=== PATIENT | male | born 1995 | race Caucasian/White ===

== ENCOUNTER 2020-01-05 08:57 | Emergency (ER) | payer SELFPAY ==
[2020-01-05 09:00] VITALS: BP 127/70; PULSE 79; RESP 18; TEMP 36.9; O2SAT 98
--- NOTE | 2020-01-05 09:33 | ED.GENADUL_ITS ---
Discharge Plan Disposition Patient Disposition: HOME Condition: Stable Discharge Details Chief Complaint: RespSymp Clinical Impression: Shortness of breath, Pharyngitis Primary Care Provider: None,None ED Provider: Earnest Silva Discharge Instructions Instructions: Pharyngitis (ED), Dyspnea (ED) Additional Instructions: Rapid strep test is negative, culture pending. Cbrw-cew-duesckl medications as directed for symptomatic control. At this time your symptoms are concerning for coronavirus. Due to the increased likelihood of your symptoms being from coronavirus the CDC does recommend testing. It takes at least 72 hours for the test results to return. You will be contacted by [facility] staff when your results return. If you do not hear from them in 72 hours, please contact [facility]. Out of an abundance of precaution it is highly recommended that you self quarantine yourself for a total of 14 days or until symptom-free for greater than 48 hours. It would be prudent to wear a mask at all times, always wash her hands frequently, and follow-up closely with your primary care provider. It is recommended that you call your primary care provider prior to reassessment. If you are going to a health facility, please call/contact them before you arrive. At this time based on your current symptoms the CDC does not recommend admission, and there is no current clinical indication for your admission here at the hospital. However it is vitally im portant to monitor your symptoms closely, and if you notice any worsening of your symptoms, or any new symptoms such as worsening shortness of breath, difficulty breathing, persistent fever, worsening chills, chest pain, numbness, weakness, or fainting please call and then return immediately to the emergency department for reevaluation. Please call your primary care provider as soon as possible to make them aware of your current situation and for continued monitoring. As always, it was a pleasure participating in your medical care today. Stand Alone Forms: POSITIVE COVID-19/TO BE TESTED Medical Decision Making 24-year-old gentleman presents sore throat, shortness of breath, dry cough for the past 3 days. Needs to be cleared to return to work. He appears well, nontoxic. He is currently afebrile, pulse in the 70s, O2 sat 98% on room air. Given his complaint of sore throat, will obtain rapid strep The patient demonstartes some red flags as noted by the CDC for coronavirus including cough, and/or shortness of breath. The patient looks notably clinically well, and does not demonstrate evidence of respiratory distress, significant or severe illness, or sepsis. Per CDC recommendations, coronavirus testing has been set up to be performed in the tent. Additionally, patient currently does not demonstrate symptoms indicative of admission or further observation here. At this time based on the patient's current clinical picture symptoms are likely secondary to a non-coronavirus viral illness. Out of an abundance of precaution taking into account the current level of national concern, the patient's entire clinical picture, and CDC recommendations, the patient can be discharged home. Per CDC recommendations we will recommend a 14- day quarantine of the patient I have discussed good handwashing techniques, the importance of a mask, and we have also included CDC recommendations for home monitoring and isolation. I have extensively reviewed the treatment plan and discharge instructions with the patient. I have addressed all patient concerns at this time. The patient was made aware of what symptoms to monitor for that would warrant a return to the emergency department. I also discussed the importance of calling the patients's PCP, as well as the ED for any concern on prior to return. Discussed the plan with the patient, they demonstrate verbal understanding and agreement with our assessment and plan at this time. Patient was placed on the care management list to help obtain a primary care provider Lab Data Lab results narrative: Rapid strep negative, culture pending HPI General Mode of arrival: ambulatory . Date/Time Provider Initiated Documentation: 01/05/20 09:08 . Limitations to Documentation: no limitations . Information obtained by: patient . 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 He reports 3-day history of sore throat, subjective shortness of breath, dry cough. Denies any fever. He denies any recent travel or any known exposure to a Covid positive patient. He has not taken any lfdb-edi-weiujom medications for his symptoms. He denies headache, ear pain, productive cough, abdominal pain, nausea, vomiting, rash, bowel or bladder symptoms. Related Data Allergies Allergy/AdvReac Type Severity Reaction Status Date / Time oats Allergy Severe Anaphylaxsi Unverified 01/05/20 09:04 s amoxicillin Allergy Mild Hives Unverified 01/05/20 09:04 chocolate flavor Allergy Mild Skin Rash Unverified 01/05/20 09:04 stawberrys Allergy Mild Skin Rash Uncoded 01/05/20 09:04 General Stated Complaint: RespSymp GARDENAI: 3 Review of Systems Constitutional Constitutional: Denies fever(s) and Denies headache(s) Eyes Eyes: Denies eye discharge ENT Ears, Nose, Mouth, and Throat: Denies headache(s), Reports nasal discharge and Reports sore throat Cardiovascular Cardiovascular: Denies chest pain and Reports dyspnea Respiratory Respiratory: Reports cough and Reports dyspnea Gastrointestinal Gastrointestinal: Denies abdominal pain, Denies diarrhea, Denies nausea and Denies vomiting Musculoskeletal Musculoskeletal: Denies myalgias Integumentary/Breasts Skin/Breast: Denies rash Neurologic Neurologic: Denies headache(s) [facility] Social History Smoking/Tobacco Use Status: Current every day Tobacco Type: smokeless tobacco Alcohol Intake: former Drug use: Never Substance use type: does not use Do you feel safe at home: Yes Do you feel safe in your relationship?: Yes Exam Const General: cooperative, healthy appearing, comfortable and no acute distress Orientation: alert, awake and oriented x3 HENMT Head: normal to inspection, normocephalic and atraumatic Ears: external ears normal, TM's normal bilaterally and EAC's normal Mouth: moist mucous membranes Throat: posterior oropharynx normal Eyes Conjunctivae: conjunctivae normal Neck Neck: normal visual inspection, full ROM, no lymphadenopathy, no meningeal signs, trachea midline and supple Resp Effort & Inspection: normal respiratory effort and able to speak in complete sentences Auscultation: clear to auscultation bilaterally Cardio Rate: regular rate Rhythm: regular rhythm GI Palpation: soft and nontender Back/Spine/Pelvis Back: No back tenderness Skin General skin exam: no rashes or lesions noted Neuro General: patient alert, patient awake, moves all extremities and no focal motor deficits Sensory Exam: no sensory deficits noted Psych Appearance: grossly normal Mental Status: mental status grossly normal Course Vital Signs Vital signs: Vital Signs Temperature 36.9 C 01/05/20 09:00 Pulse 79 01/05/20 09:00 Respiratory Rate 18 01/05/20 09:00 Blood Pressure 127/70 01/05/20 09:00 Pulse Oximetry 98 01/05/20 09:00 Temperature 36.9 C 01/05/20 09:00 Temperature Source Temporal Artery Scan 01/05/20 09:00 Pulse 79 01/05/20 09:00 Respiratory Rate 18 01/05/20 09:00 Respiratory Effort Non-Labored 01/05/20 09:05 Blood Pressure 127/70 01/05/20 09:00 Blood Pressure Position Sitting 01/05/20 09:00 Pulse Oximetry 98 01/05/20 09:00 Oxygen Delivery Method Room Air 01/05/20 09:00 Oxygen Flow Rate 0 01/05/20 09:00 Pain Level 5 01/05/20 09:00 Lab/Test Results Lab/Test Results: POC Strep Test-STEPHANIE(Rapid) Start: 01/05/20 09:31 Freq: .Rapid Strep Test Status: Active Protocol: Document 01/05/20 09:32 AW (Rec: 01/05/20 09:32 AW [email or web address]) Strep test-STEPHANIE(Rapid)-POC POC-Strep test-STEPHANIE (Rapid) Negative POC-Strep test-STEPHANIE (Rapid) Negative
[2020-01-05 09:46] VITALS: PULSE 73; TEMP 36.8; O2SAT 96
--- NOTE | 2020-01-05 09:54 | NUR.NOTE ---
REFERRED TO CARE MANAGEMENT TO RECEIVE A PCP MIQUEL. Nursing Note:
--- NOTE | 2020-01-05 13:47 | PDOC.ERCMPRO ---
- If Service Date Differs Date of service: 01/05/20 Time of Service: 13:47 Care Management Progress Note At the request of ED provider, LISSETT coordinates a referral to [facility] on behalf of Hari, who needs to establish care with a primary care physician.
== END 2020-01-05 09:52 | disposition home or self-care (01) ==
LOC: ER 10:21
PROVIDERS: Emergency Provider Physician Assistant
DX: R06.02 Shortness of breath (principal); J02.9 Acute pharyngitis, unspecified
CPT/HCPCS: 87880; 99283; 87081; 99282

== ENCOUNTER 2020-01-10 08:16 | Outpatient (CLI) | payer SELFPAY ==
[2020-01-11 14:15] LABS: COVID-19 RT-PCR Result Negative (Negative)
--- NOTE | 2020-01-12 19:16 | NUR.NOTE ---
patient is aware of negative Covid -19 results. Nursing Note:
== END 2020-01-10 08:36 ==
PROVIDERS: Visit Provider Physician Assistant
DX: Z11.59 Encounter for screening for other viral diseases (principal)
CPT/HCPCS: U0003

== ENCOUNTER 2020-03-22 15:26 | Emergency (ER) | payer OTHER, SELFPAY ==
[2020-03-22 15:30] VITALS: BP 123/72; PULSE 63; RESP 18; TEMP 36.8; O2SAT 99
--- NOTE | 2020-03-22 15:49 | ED.GENADUL_ITS ---
Discharge Plan Disposition Patient Disposition: HOME Condition: Good Discharge Details Chief Complaint: HeadInjury Clinical Impression: Laceration of scalp, Concussion Primary Care Provider: None,None ED Provider: Bart Clay Discharge Instructions Instructions: Concussion (ED), Staple Care (ED) Additional Instructions: Please leave the dressing on for 24 hours, then you may remove and begin cleaning the wound at least twice a day with soap and water. Continue to apply antibiotic ointment. Do not directly soak the area. Watch for any signs of infection and return if any increasing redness, swelling, pain, drainage. Please return in the next 5 to 7 days to have the manoj removed. If you notice any worsening of your symptoms, or any new symptoms such as vomiting, diarrhea, fever, chills, shortness of breath, chest pain, numbness, weakness, or fainting , please return immediately to the emergency department for reevaluation. Please follow up with your primary care provider as soon as possible for reassessment and reevaluation. As always, it was a pleasure participating in your medical care today. Medical Decision Making This is a 24-year-old male with no significant past medical history whose immunizations are not up-to-date for his tetanus who presents today for evaluation of laceration to his scalp. Patient states that he was working at [employer] when he stood up quickly and hit his head on a car door. He had some mild to moderate bleeding at that time. Mild pain where he hit his head of course. He had no loss of consciousness. He recalls the entire event. Aside for the very mild pain at the scalp itself he has no other complaints at this time. No other modifying factors. Tetanus has been updated here today. Exam demonstrates no unremarkable simple linear laceration that is 1 cm in length on the scalp, no signs of other trauma or abnormality. Normal neurologic exam, no depressed skull fracture. No indications for imaging at this time. The patient's scalp was cleaned with chlorhexidine scrub vigorously and washed out with copious amounts of normal saline. The patient declined analgesic medication. 3 manoj were placed without complication. Patient tolerated procedure well. Suspect mild concussion at worst. Recommend rest, Tylenol Motrin and discharge. Discussed red flags which to return. I have extensively reviewed the treatment plan and discharge instructions with the patient. I have addressed all patient concerns at this time. The patient was made aware of what symptoms to monitor for that would warrant a return to the emergency department. Discussed the plan with the patient, they demonstrate verbal understanding and agreement with our assessment and plan at this time. HPI General Date/Time Provider Initiated Documentation: 03/22/20 15:28 . HPI Narrative: This is a 24-year-old male with no significant past medical history whose immunizations are not up-to-date for his tetanus who presents today for evaluation of laceration to his scalp. Patient states that he was working at [employer] when he stood up quickly and hit his head on a car door. He had some mild to moderate bleeding at that time. Mild pain where he hit his head of course. He had no loss of consciousness. He recalls the entire event. Aside for the very mild pain at the scalp itself he has no other complaints at this time. No other modifying factors. Related Data Allergies Allergy/AdvReac Type Severity Reaction Status Date / Time oats Allergy Severe Anaphylaxsi Unverified 01/05/20 09:04 s amoxicillin Allergy Mild Hives Unverified 01/05/20 09:04 chocolate flavor Allergy Mild Skin Rash Unverified 01/05/20 09:04 stawberrys Allergy Mild Skin Rash Uncoded 01/05/20 09:04 General Stated Complaint: HeadInjury GARDENIA: 3 Review of Systems All systems reviewed & are unremarkable except as noted in HPI and below [facility] Social History Smoking/Tobacco Use Status: Current every day Tobacco Type: smokeless tobacco Alcohol Intake: former Drug use: Never Substance use type: does not use Do you feel safe at home: Yes Do you feel safe in your relationship?: Yes Exam Narrative Exam Narrative: 1.Const: Well-nourished, Well-developed, appearing stated age 2.Eyes: PERRL, no conjunctival injection, and symmetrical lids. 3.ENT: Atraumatic external nose and ears. Moist MM. Neck: Symmetric, trachea midline, No thyromegaly. There is no evidence of raccoon eyes, koenig sign, CSF rhinorrhea, mastoid tenderness, cranial crepitus, hemotympanum, exophthalmos, or hyphema. Patient demonstrates intact dentition with no signs of tooth avulsion or fracture, no signs of jaw deformity, no evidence of a LeFort's fracture, with an intact palate, nose and orbital region. There is no evidence of a nasal septal hematoma. No proptosis. Jaw closes symmetrically. Airway is clear. 4.CVS: +S1/S2, No murmurs or gallops. Peripheral pulses 2+ and equal in all extremities. Brisk capillary refill in all extremities. 5.RESP: Unlabored respiratory effort. Clear to auscultation bilaterally. No wheezes rales or rhonchi 6.GI: Soft, Nontender/Nondistended, No hepatosplenomegaly. No guarding or rebound. 7.MSK: Normocephalic/Atraumatic, Extremities w/o deformity or ttp No cyanosis or clubbing, Normal movement of all extremities 8.Skin: Warm, Dry. Patient's scalp demonstrates a small linear laceration 1 cm in length, no evidence of glial trauma. Deep structures are intact. No depressed skull fracture on palpation. No other abnormalities. 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 Sensation grossly intact, no focal neurologic deficits. All 6 cardinal planes of vision are fully intact. No evidence of rotatory or vertical nystagmus. The patient demonstrated a normal dngwam-duip-ejbrkz, good dexterity. There was no evidence of dysdiadochokinesia. Patient was able to ambulate without difficulty. There was no wide-based gait. Romberg testing was normal. Eiae-ev-wrqy testing was normal. Sensation was intact bilaterally as well as muscle strength bilaterally for all extremities. Patient was able to verbalize butter cup with no slurring, or miss pronunciation. 10.Psych: (AAO) x3. Appropriate mood and affect Course Vital Signs Vital signs: Vital Signs Temperature 36.8 C 03/22/20 15:30 Pulse 63 03/22/20 15:30 Respiratory Rate 18 03/22/20 15:30 Blood Pressure 123/72 03/22/20 15:30 Pulse Oximetry 99 03/22/20 15:30 Temperature 36.8 C 03/22/20 15:30 Temperature Source Skin 03/22/20 15:30 Pulse 63 03/22/20 15:30 Respiratory Rate 18 03/22/20 15:30 Respiratory Effort Non-Labored 03/22/20 15:47 Respiratory Depth Normal 03/22/20 15:47 Respiratory Pattern Normal 03/22/20 15:47 Blood Pressure 123/72 03/22/20 15:30 Blood Pressure Position Sitting 03/22/20 15:30 Pulse Oximetry 99 03/22/20 15:30 Oxygen Delivery Method Room Air 03/22/20 15:30 Oxygen Flow Rate 0 03/22/20 15:30 Procedures Laceration Laceration 1: Site: scalp Size (cm): 1 Description: linear Depth: simple, single layer Pre-repair: wound explored, irrigated extensively and deep structures intact Size (cm): other (2 manoj)
[2020-03-22 16:09] VITALS: BP 116/62; PULSE 59; RESP 18; TEMP 36.7; O2SAT 99
== END 2020-03-22 16:16 | disposition home or self-care (01) ==
PROVIDERS: Emergency Provider Student in an Organized Health Care Education/Training Program
DX: S01.01XA Laceration without foreign body of scalp, initial encounter (principal); S06.0X0A Concussion without loss of consciousness, initial encounter; W22.09XA Striking against other stationary object, initial encounter; Y99.0 Civilian activity done for income or pay
CPT/HCPCS: 12001; 90471

== ENCOUNTER 2020-03-29 13:12 | Emergency (ER) | payer SELFPAY ==
[2020-03-29 13:23] VITALS: BP 120/71; PULSE 70; RESP 16; TEMP 36.5; O2SAT 99
--- NOTE | 2020-03-29 13:23 | ED.GENADUL_ITS ---
Discharge Plan Disposition Patient Disposition: HOME Condition: Stable Discharge Details Clinical Impression: Encounter for staple removal Primary Care Provider: None,None ED Provider: Clarence Mathis Discharge Instructions Additional Instructions: May resume normal routine and activities. Return for any acute concern. Yes Medical Decision Making 22-year-old male here for removal of alan. Uneventful examination. Alan removed from scalp wound; patient will be discharged home. HPI General Mode of arrival: ambulatory . Date/Time Provider Initiated Documentation: 03/29/20 13:23 . Limitations to Documentation: no limitations . Information obtained by: patient . History of Present Illness 25 year old M presents to the emergency department with the chief complaint of Here for staple removal from left scalp wound. No other complaints., Related Data Allergies Allergy/AdvReac Type Severity Reaction Status Date / Time oats Allergy Severe Anaphylaxsi Unverified 01/05/20 09:04 s amoxicillin Allergy Mild Hives Unverified 01/05/20 09:04 chocolate flavor Allergy Mild Skin Rash Unverified 01/05/20 09:04 stawberrys Allergy Mild Skin Rash Uncoded 01/05/20 09:04 General GARDENIA: 3 PFSH Social History Smoking/Tobacco Use Status: Current every day Tobacco Type: smokeless tobacco Alcohol Intake: former Drug use: Never Substance use type: does not use Do you feel safe at home: Yes Do you feel safe in your relationship?: Yes Exam Narrative Exam Narrative: GEN: awake, alert, oriented 3. Pleasant, well groomed, interactive. HEAD: Normocephalic, healing laceration with 3 alan left posterior superior scalp EYES: PERRL, EOMI NECK: Full ROM, no ANGIE, no menigismus Neuro: Grossly normal neurologic exam, conversant, interactive. Psych: Speech fluent, thoughts congruent, affect normal
== END 2020-03-29 13:32 | disposition home or self-care (01) ==
LOC: ER 13:54
PROVIDERS: Emergency Provider Emergency Medicine
DX: S01.01XA Laceration without foreign body of scalp, initial encounter (principal); W22.09XA Striking against other stationary object, initial encounter; Z48.02 Encounter for removal of sutures

== ENCOUNTER 2020-08-08 20:13 | Emergency (ER) | payer SELFPAY ==
[2020-08-08 20:17] VITALS: BP 140/68; PULSE 97; RESP 16; TEMP 37; O2SAT 97
--- NOTE | 2020-08-08 20:22 | ED.GENADUL_ITS ---
Discharge Plan Disposition Patient Disposition: HOME Condition: Good Discharge Details Clinical Impression: Infected finger laceration Primary Care Provider: None,None ED Provider: Arian De [facility] New Rx's Prescriptions: New cephalexin 500 mg capsule 500 mg PO Q8H Qty: 20 RF: 0 Discharge Instructions Instructions: Acute Wound Care (ED) Additional Instructions: Wound care twice a day to keep clean. Keep covered especially at work. Antibiotic as directed. Should be no issues with allergic reaction but watch for rash, difficulty breathing, throat swelling. Return to ED if worsening infection. Care management referral for primary care provider. Referrals: Care Management [Provider Group] Medical Decision Making Patient presenting with superficial infected laceration of the left little finger. No evidence of tendon or joint involvement. To be cleaned and irrigated. Will start cephalexin. Reported allergy to amoxicillin but patient reports this was told to him and he does not recall the reaction. We did discuss possibility of cross-reactivity. However, I feel cephalexin still the appropriate antibiotic. Good local wound care. Should heal without sequelae. Return to ED if significantly worse. Follow-up with PCP if still issues next week when antibiotic completed. Tetanus is up-to-date. HPI General Mode of arrival: ambulatory . Date/Time Provider Initiated Documentation: 08/08/20 20:13 . Limitations to Documentation: no limitations . Information obtained by: patient and RN notes reviewed . HPI Narrative: Patient presents to ED with left little finger laceration/infection. Patient is right-hand dominant. Patient sustained superficial left little finger laceration while working on a car. This occurred about 4 days ago. Now has increased pain, redness, swelling. No fever. No numbness or weakness. Some decreased range of motion due to pain. Related Data Home Medications Medication Instructions Recorded Confirmed cephalexin 500 mg PO Q8H #20 cap 08/08/20 Previous Rx's Medication Instructions Recorded cephalexin 500 mg PO Q8H #20 cap 08/08/20 Allergies Allergy/AdvReac Type Severity Reaction Status Date / Time oats Allergy Severe Anaphylaxsi Unverified 08/08/20 20:20 s amoxicillin Allergy Mild Hives Unverified 08/08/20 20:20 chocolate flavor Allergy Mild Skin Rash Unverified 08/08/20 20:20 stawberrys Allergy Mild Skin Rash Uncoded 08/08/20 20:20 General Stated Complaint: Laceration GARDENIA: 4 Review of Systems Constitutional Constitutional: Denies fever(s) Cardiovascular Cardiovascular: Denies dyspnea Respiratory Respiratory: Denies cough and Denies dyspnea Integumentary/Breasts Skin/Breast: Reports erythema and Reports wounds [facility] Medical History (Updated 08/08/20 @ 20:42 by Arian De MD) Asthma Surgical History No significant past surgical history Social History Smoking/Tobacco Use Status: Current every day Tobacco Type: smokeless tobacco Smoking risk assessment performed?: Yes Alcohol Intake: former Drug use: Never Substance use type: does not use Do you feel safe at home: Yes Do you feel safe in your relationship?: Yes Exam Const General: cooperative, comfortable and no acute distress Orientation: alert and oriented x3 HENMT Head: normocephalic and atraumatic Neck Neck: trachea midline and supple Resp Effort & Inspection: normal respiratory effort Extrem Other: Small, less than 0.5 cm, superficial laceration over the left little finger proximal IP joint. Surrounding swelling and erythema. Decreased active range of motion due to pain. Normal passive range of motion. Normal extension against resistance. No numbness. Course Vital Signs Vital signs: Vital Signs Temperature 98.6 F 08/08/20 20:17 Pulse 97 H 08/08/20 20:17 Respiratory Rate 16 08/08/20 20:17 Blood Pressure 140/68 08/08/20 20:17 Pulse Oximetry 97 08/08/20 20:17 Temperature 98.6 F 08/08/20 20:17 Temperature Source Skin 08/08/20 20:17 Pulse 97 H 08/08/20 20:17 Respiratory Rate 16 08/08/20 20:17 Blood Pressure 140/68 08/08/20 20:17 Pulse Oximetry 97 08/08/20 20:17 Pain Level 4 08/08/20 20:17
--- NOTE | 2020-08-08 20:52 | NUR.NOTE ---
Referral to Care Management to establish pcpNursing Note:
[2020-08-08] MEDS: Cephalexin 500 MG CAP, 2 CAPS/BTL PO (21:10)
--- NOTE | 2020-08-09 09:03 | CMPROGNOTE_ITS ---
- If Service Date Differs Date of service: 08/09/20 Time of Service: 09:03 Care Management Progress Note Hari is seen in the ED on 08/08/20 for an infected finger laceration. At the request of Dr. De, ED provider, LISSETT coordinates a referral to Celina Vazquez MD, on-call provider, of [facility], to assist Hari in obtaining a follow up appointment and in establishing care with a PCP.
== END 2020-08-08 21:15 | disposition home or self-care (01) ==
LOC: ER 21:10
PROVIDERS: Emergency Provider Emergency Medicine
DX: S61.217A Laceration without foreign body of left little finger without damage to nail, initial encounter (principal); L03.012 Cellulitis of left finger
CPT/HCPCS: 99283

== ENCOUNTER 2021-10-24 10:56 | Emergency (ER) | payer BC, SELFPAY ==
[2021-10-24 11:07] VITALS: BP 136/67; PULSE 75; RESP 16; TEMP 36.8; O2SAT 98
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
[2021-10-24 20:36] LABS: COVID-19 RT-PCR UVMMC Result Negative (Negative)
--- NOTE | 2021-10-25 09:09 | W.ED.FU ---
10/25/21 0905 Informed patient of negative Covid result. Patient had no further questions or needs stated at time of discussion.
== END 2021-10-24 11:30 | disposition home or self-care (01) ==
PROVIDERS: Emergency Provider Nurse Practitioner Family
DX: Z20.822 Contact with and (suspected) exposure to COVID-19 (principal)
CPT/HCPCS: 99281; U0003

== ENCOUNTER 2023-09-17 20:46 | Outpatient (REF) | payer BC, SELFPAY ==
[2023-09-17 14:13] LABS: Source Nasal/Nares
[2023-09-17 16:40] LABS: COVID-19 PCR Negative (Negative)
== END 2023-09-17 20:47 | disposition home or self-care (01) ==
LOC: LBN 20:46
PROVIDERS: PCP Nurse Practitioner Family; Visit Provider Physician Assistant Medical
DX: J02.0 Streptococcal pharyngitis (principal); Z20.822 Contact with and (suspected) exposure to COVID-19
CPT/HCPCS: 87635

== ENCOUNTER 2024-02-09 10:39 | Emergency (ER) | payer OTHER, SELFPAY ==
[2024-02-09 10:41] VITALS: BP 143/72; PULSE 77; RESP 18; TEMP 37; O2SAT 98
[2024-02-09 11:22] VITALS: BP 143/72; PULSE 77; RESP 18; TEMP 37; O2SAT 98
--- NOTE | 2024-02-09 13:48 | W.ED.GENAD ---
Discharge Plan Disposition Patient Disposition: Home Discharge Details Clinical Impression: Biceps strain Primary Care Provider: Patrick Castro ED Provider: Yesi Chavez Home Meds and New Rx's Prescriptions: Continued escitalopram oxalate [Lexapro] 10 mg tablet 10 mg PO DAILY Qty: 90 3RF methylphenidate HCl 10 mg capsule, ER biphasic 30-70 10 mg PO DAILY MDD 10mg Qty: 28 0RF Hold Instructions: Missed apt Discharge Instructions Additional Instructions: motrin and tylenol as needed for pain rest in sling, but continue to range shoulder so it does not become stiff no lifting >5 lbs or repetitive motion follow-up with occupational therapy in one week return earlier with new or worsening complaints Stand Alone Forms: Work Release Referrals: Kassandra Sloan [REG OCCUPATIONAL THERAPIST] - Patrick Castro, MEDIA CONSULTANT [employer] [Primary Care Provider] - 2 days Connie Green NP [NURSE PRACTITIONER] - 1 week (biceps strain ) Discharge Data Discharge Date/Time-TO BE ENTERED AT DEPARTURE: 02/09/24 11:22 HPI General Date/Time Provider Initiated Documentation: 02/09/24 10:52. HPI Narrative: This 28-year-old male presents with injury to the right biceps region after lifting a chainsaw. Patient states he felt a pop and instant pain in his right upper arm. He denies any additional injuries. He states his arm feels weak now when he tries to lift, specifically with flexion. Denies any neck pain or strength or sensation changes to hands. Related Data Home Medications Medication Instructions Recorded Confirmed methylphenidate HCl 10 mg biphasic 10 mg PO DAILY #28 caps 09/08/23 02/09/24 30-70 capsule,extended release escitalopram oxalate 10 mg tablet 10 mg PO DAILY #90 tabs 10/01/23 02/09/24 (Lexapro) Previous Rx's Medication Instructions Recorded methylphenidate HCl 10 mg biphasic 10 mg PO DAILY #28 caps 09/08/23 30-70 capsule,extended release escitalopram oxalate 10 mg tablet 10 mg PO DAILY #90 tabs 10/01/23 (Lexapro) Allergies Allergy/AdvReac Type Severity Reaction Status Date / Time oats Allergy Severe Anaphylaxsi Unverified 02/09/24 10:43 s amoxicillin Allergy Mild Hives Unverified 02/09/24 10:43 chocolate flavor Allergy Mild Skin Rash Unverified 02/09/24 10:43 [email or web address] Allergy Mild Skin Rash Uncoded 02/09/24 10:43 General Stated Complaint: Orthopedic GARDENIA: 4 Exam Narrative Exam Narrative: Right arm with tenderness to biceps region, no tenderness to elbow and strength and sensation intact with flexion and extension of arm, neurovascularly intact, no visible evidence of trauma, tenderness at long head insertion site. Positive supraspinatus test as well. Course Vital Signs Vital signs: Vital Signs Temperature 37.0 C 02/09/24 10:41 Pulse 77 02/09/24 10:41 Respiratory Rate 18 02/09/24 10:41 Blood Pressure 143/72 H 02/09/24 10:41 Pulse Oximetry 98 02/09/24 10:41 Temperature 37.0 C 02/09/24 11:22 Pulse 77 02/09/24 11:22 Respiratory Rate 18 02/09/24 11:22 Respiratory Effort Normal, Non-Labored 02/09/24 10:43 Blood Pressure 143/72 H 02/09/24 11:22 Blood Pressure Position Sitting 02/09/24 10:41 Pulse Oximetry 98 02/09/24 11:22 Oxygen Delivery Method Room Air 02/09/24 10:41 Oxygen Flow Rate 0 02/09/24 10:41 Pain Level 3 02/09/24 10:41 Medical Decision Making 28-year-old male presenting with injury with flexion at work. He has limited ability with flexion although strength appears preserved and there is no visible deformity or evidence of trauma. No clear indication for x-ray at this time, neurovascularly intact and tenderness predominantly over biceps muscle although patient does have evidence of possible rotator cuff involvement as well. Will need occupational health reassessment in 1 week. Patient was placed in a sling with frozen shoulder precautions reviewed in detail and given work restrictions. He is encouraged to take ibuprofen and Tylenol as needed pain and apply ice. Quality:SDOH Health Related Social Needs: No Data to Display PFSH All Active Problems (Updated 02/09/24 @ 11:06 by JOÃO Shoemaker) Biceps strain (Acute) Depression with anxiety (Acute) Attention deficit hyperactivity disorder (ADHD) (Acute) Tobacco chew use (Acute) slowly stopping Asthma (Chronic) Most likely grown out of this. Surgical History No significant past surgical history Family History (Updated 02/23/22 @ 13:38 by Flower Whitman) Mother Depression Father Diabetes Brother No problems noted. Brother No problems noted. Social History (Updated 10/05/23 @ 17:29 by Jennyfer Valdez) Smoking/Tobacco Use Status: Current every day Tobacco Type: smokeless tobacco Tobacco: How many years used: 5 Smokeless tobacco user: chewing tobacco Quit status: quit date established Second Hand Exposure: Yes Smoking risk assessment performed?: Yes Alcohol Intake: never Drug use: Never Substance use type: does not use Adopted: No Caregiver/Support person: No Foster care: No Household members: spouse and children Housing: house Number of Children: 1 Communication Needs: None Education Level: college Do you need help understanding health information?: Never 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 Pets and animals: Yes Pets and animals: cat(s) Sexually active: Yes Do you think of yourself as: straight/heterosexual Current gender identity: male What is your relationship status?: How often do you talk on the phone with friends or family?: once per week How often do you get together with friends or relatives?: three or more times per week How often do you attend sabianist or congregational services?: 1-3 times per year Do you belong to any clubs or organized social groups?: no Panel score (0-1 are the most socially isolated patients): 2 What type of physical activity do you participate in: aerobic, weight lifting and running Duration: 45-60 minutes/day Frequency: 5-6 times per week Mamta/Mormon: Sabianism Special mamta needs: No Agree to transfusion: Yes Seatbelt use: always Helmet use: Yes Helmet use: always Drive intox or ride w/intox diesel truck driver: No Working smoke detector in home: Yes Carbon monox detector in home: Yes Firearms in home: Yes Firearms unloaded and locked: Yes Do you feel safe at home: Yes Do you feel safe in your relationship?: Yes Victim of physical abuse: No Victim of emotional abuse: No Victim of sexual abuse: No
== END 2024-02-09 11:22 | disposition home or self-care (01) ==
PROVIDERS: Emergency Provider Physician Assistant; PCP Nurse Practitioner Family
DX: S46.211A Strain of muscle, fascia and tendon of other parts of biceps, right arm, initial encounter (principal); X50.0XXA Overexertion from strenuous movement or load, initial encounter; Y93.89 Activity, other specified; F17.220 Nicotine dependence, chewing tobacco, uncomplicated
CPT/HCPCS: 99283

== ENCOUNTER → 2024-03-07 02:50 | Outpatient (CLI) | payer OTHER, SELFPAY ==
--- NOTE | 2024-03-07 06:30 | DI.MRI_ITS ---
Exam(s) MR UPPER JOINT RT WO EXAM: MR UPPER JOINT RT WO CLINICAL HISTORY: Pain and weakness rt elbow,bicep strain, ? tear,S46.219a. TECHNIQUE: Multiplanar multisequence MRI was performed. COMPARISON: No exams were available for comparison FINDINGS: BONES: There is no fracture or contusion pattern. JOINTS: The articular cartilage is unremarkable. No joint effusion is present. TENDONS: Common flexors: Unremarkable. Common extensors: Unremarkable. Biceps: Unremarkable. Triceps: Mild increased signal seen in the triceps tendon at its insertion site which may reflect a t endinitis. MUSCLES: Unremarkable. MEDIAN NERVE: Unremarkable on this noncontrast examination. ULNAR NERVE: Unremarkable on this noncontrast examination. SOFT TISSUES: Unremarkable. LIGAMENTS: Ulnar collateral: Unremarkable. Radial collateral: Unremarkable. OTHER: IMPRESSION: 1. Unremarkable biceps tendon. 2. Findings suggesting the triceps tendinitis. DATA REPOSITORY:
== END ==
PROVIDERS: PCP Nurse Practitioner Family; Visit Provider Nurse Practitioner Family
DX: S46.219A Strain of muscle, fascia and tendon of other parts of biceps, unspecified arm, initial encounter (principal); S46.211A Strain of muscle, fascia and tendon of other parts of biceps, right arm, initial encounter
CPT/HCPCS: 73221

== ENCOUNTER 2024-11-08 11:48 | Emergency (ER) | payer BC, SELFPAY ==
[2024-11-08 12:00] VITALS: BP 137/61; PULSE 89; RESP 20; TEMP 37.6; O2SAT 98
--- NOTE | 2024-11-08 12:11 | W.ED.GENAD ---
Discharge Plan Disposition Patient Disposition: Home Condition: Stable Discharge Details Clinical Impression: Influenza A Primary Care Provider: Patrick Castro ED Provider: Bart Xiong Home Meds and New Rx's Prescriptions: New oseltamivir 75 mg capsule 75 mg PO BID 5 Days Qty: 10 0RF Continued methylphenidate HCl 10 mg capsule, ER biphasic 30-70 10 mg PO DAILY MDD 10mg Qty: 28 0RF Discharge Instructions Instructions: Oseltamivir, Flu, Adult ED Additional Instructions: You were seen in the emergency department for your cough with some red flecks in your sputum, there is no evidence of blood clot on the blood test we did. Your laboratory workup is negative for any acute emergent pathology, you tested positive for influenza A. Please take Tylenol and ibuprofen as needed for flu, take the prescribed Tamiflu as directed, please return for any severe respiratory distress or other emergent concern. Referrals: Patrick Castro, GLASS TOUGHENING OPERATOR [Primary Care Provider] - Discharge Data Discharge Date/Time-TO BE ENTERED AT DEPARTURE: 11/08/24 14:40 HPI General Date/Time Provider Initiated Documentation: 11/08/24 12:09. HPI Narrative: 29 year-old male presents to ED today by POV/ambulating with a chief complaint of cough/respiratory illness, having red specks in his sputum, and possibly unrelated R lumbar back pain starting this morning. Quality described as generalized cough/malaise, and R lumbar paraspinal back pain, no radiation to numbness/tingling, urinary retention, bowel incontinence, dysuria, decreased urine output, shortness of breath, chest pain, sore throat, endorses mild fatigue/body aches. Severity is described as moderate. Palliating factors include nothing specific attempted. Provoking factors include nothing specific. Patient not anticoagulated. Related Data Home Medications ?Medication ?Instructions ?Recorded ?Confirmed methylphenidate HCl 10 mg biphasic 10 mg PO DAILY #28 caps 09/08/23 11/08/24 30-70 capsule,extended release oseltamivir 75 mg capsule 75 mg PO BID 5 days #10 caps 11/08/24 Previous Rx's ?Medication ?Instructions ?Recorded methylphenidate HCl 10 mg biphasic 10 mg PO DAILY #28 caps 09/08/23 30-70 capsule,extended release oseltamivir 75 mg capsule 75 mg PO BID 5 days #10 caps 11/08/24 Allergies Allergy/AdvReac Type Severity Reaction Status Date / Time oats Allergy Severe Anaphylaxsi Unverified 11/08/24 12:06 s amoxicillin Allergy Mild Hives Unverified 11/08/24 12:06 chocolate flavor Allergy Mild Skin Rash Unverified 11/08/24 12:06 [email or web address] Allergy Mild Skin Rash Uncoded 11/08/24 12:06 General Stated Complaint: Nk/Back Pain GARDENIA: 3 Review of Systems All systems reviewed & are unremarkable except as noted in HPI and below Exam Narrative Exam Narrative: GENERAL APPEARANCE: Well-nourished, non-toxic, awake and alert, atraumatic, no acute distress. SKIN: Warm, pink, dry, intact, without rashes/lesions/ulcerations. HEAD: Normocephalic, atraumatic, normal hair distribution for gender/age. EYES: Normal conjunctiva, no exudates on lids/lashes. ENT: Nares patent, no circumoral cyanosis, no facial swelling NECK: Supple, trachea midline, painless cervical ROM. LUNGS/CHEST: Lungs CTA bilaterally- no rhonchi/rales/wheezes diffusely, non-labored respirations, normal A/P diameter, symmetrical expansion, no chest wall deformity HEART (CV/PV): Regular rate and rhythm without murmur, no peripheral edema, no JVD. ABDOMEN: Soft, non-distended, no guarding. no CVA tenderness to percussion bilaterally, no RUQ tenderness. MSK: Normal ROM, no swelling/deformity to bilateral UEs or LEs, moving all extremities without weakness, no cyanosis, spine midline without tenderness, normal curvature, TTP at R SI joint area, NV intact R LE NEURO: Mental Status AAOx4 - alert to person, place, time, events No facial droop, no forehead involvement. Motor: No focal weakness - strength 5/5 in bilateral UEs and LEs, proximal and distal, symmetric. Sensory: sensation intact to light touch globally. Gait normal: patient ambulated without ataxia into ED room. PSYCH: euthymic, cooperative, pleasant, appropriate speech Course Vital Signs Vital signs: Vital Signs Temperature 37.6 C H 11/08/24 12:00 Pulse 89 11/08/24 12:00 Respiratory Rate 20 11/08/24 12:00 Blood Pressure 137/61 11/08/24 12:00 Pulse Oximetry 98 11/08/24 12:00 Temperature 37.6 C H 11/08/24 12:00 Temperature Source Oral 11/08/24 12:00 Pulse 89 11/08/24 12:00 Respiratory Rate 20 11/08/24 12:00 Blood Pressure 137/61 11/08/24 12:00 Blood Pressure Position Sitting 11/08/24 12:00 Pulse Oximetry 98 11/08/24 12:00 Oxygen Delivery Method Room Air 11/08/24 12:00 Oxygen Flow Rate 0 11/08/24 12:00 Medical Decision Making This dictation utilizes [id number] dictation software and may contain unedited grammatical errors. 29 year-old male presents to ED today by POV/ambulating with a chief complaint of cough/respiratory illness, having red specks in his sputum, and possibly unrelated R lumbar back pain starting this morning. Quality described as generalized cough/malaise, and R lumbar paraspinal back pain, no radiation to numbness/tingling, urinary retention, bowel incontinence, dysuria, decreased urine output, shortness of breath, chest pain, sore throat, endorses mild fatigue/body aches. Severity is described as moderate. Palliating factors include nothing specific attempted. Provoking factors include nothing specific. Patients' medical history: Asthma, has not had it in a long time. 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 Pertinent exam findings / vital signs include lungs CTA, no hypoxia, benign abdomen, right lower lumbar paraspinal tenderness at SI joint, no compromise of neurovascular status of right lower extremity. Differential / pathologies of concern include sciatica, sacroiliitis, PE, influenza or other viral syndrome, pneumonia. Diagnostic studies of: -CBC, CMP, D-dimer, lipase, COVID/flu/RSV PCR, EKG. -EKG without S1Q3T3, no ST changes, no T wave inversions, normal intervals -CBC is unremarkable -CMP is completely unremarkable -Lipase negative -COVID/flu/RSV PCR swab results positive for influenza A -D-dimer negative Interventions of: -Tamiflu. ED Course/Assessment/Plan: 29-year-old male presents with a cough with red flecks in it, D-dimer is negative do not suspect PE, he tested positive for the flu, I do not suspect pneumonia and he is in no respiratory distress and has no hypoxia, I counseled him on therapeutic dosing of Tylenol and ibuprofen, strict return criteria for any profound lethargy, intractable nausea or vomiting, severe respiratory distress. Findings not consistent with pneumonia, hypoxic respiratory failure, pulmonary embolism. Disposition of influenza A. Patient verbalized understanding of the plan and return to ED criteria and engaged in shared decision making. Medical Records Medical records reviewed: Yes I reviewed the patient's medical records. Lab Data Lab results reviewed: Yes I reviewed the patient's lab results. Labs: Laboratory Tests Range/Units 11/08/24 11/08/24 12:03 13:30 WBC (4.4-10.8) 10^3/uL 7.91 RBC (4.36-5.78) 10^6/uL 5.71 Hgb (13.5-17.5) g/dL 16.4 Hct (40.0-50.0) % 48.4 MCV (80-95) fL 85 MCH (27.0-33.0) pg 28.7 MCHC (32.0-36.0) % 33.9 RDW (11.8-14.1) % 12.4 Plt Count (130-400) 10^3/uL 221 MPV (8.0-11.0) fL 9.8 Immature Gran % % 0.4 Neutrophils % % 82.8 Lymphocytes % % 7.6 Monocytes % % 7.3 Eosinophils % % 1.4 Basophils % % 0.5 Nucleated RBC % (0.0-0.3) % 0.0 Absolute Neutrophils (1.2-6.7) 10^3/uL 6.55 Absolute Lymphocytes (1.2-3.4) 10^3/uL 0.60 L Absolute Monocytes (0.1-0.8) 10^3/uL 0.58 Absolute Eosinophils (0.0-0.7) 10^3/uL 0.11 Absolute Basophils (0.0-0.2) 10^3/uL 0.04 D-Dimer (<500) ng/mlFEU 214 Sodium (136-145) mmol/L 143 Potassium (3.5-5.1) mmol/L 4.3 Chloride (98-107) mmol/L 106 Carbon Dioxide (21.0-32.0) mmol/L 33.8 H Anion Gap (3-11) mmol/L 3.2 BUN (7-18) mg/dL 9 Creatinine (0.70-1.30) mg/dL 1.0 Est GFR (CKD-EPI 2020) (mL/min/1.73m2) 105.79 Glucose (74-106) mg/dL 94 Calcium (8.5-10.1) mg/dL 9.7 Total Bilirubin (0.2-1.0) mg/dL 0.72 AST (15-37) U/L 16 ALT (16-63) U/L 28 Alkaline Phosphatase (46-116) U/L 103 Total Protein (6.4-8.2) g/dL 8.1 Albumin (3.4-5.0) g/dL 4.9 Lipase (<78) U/L 32 COVID-19 Source Nasopharynx SARS-CoV-2 (PCR) (Negative) Negative Influenza Type A (PCR) (Negative) Positive A Influenza Type B (PCR) (Negative) Negative RSV (PCR) (Negative) Negative Quality:SDOH Health Related Social Needs: No Data to Display PFSH All Active Problems (Updated 11/08/24 @ 14:28 by JOÃO Flores) Influenza A (Acute) No-show for appointment (Acute) Cubital tunnel syndrome on right (Acute) Depression with anxiety (Acute) Attention deficit hyperactivity disorder (ADHD) (Acute) Tobacco chew use (Acute) slowly stopping Asthma (Chronic) Most likely grown out of this. Surgical History No significant past surgical history Family History Mother Depression Father Diabetes Brother No problems noted. Brother No problems noted. 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 Pets and animals: Yes Pets and animals: cat(s) Sexually active: Yes Do you think of yourself as: straight/heterosexual Current gender identity: male What is your relationship status?: How often do you talk on the phone with friends or family?: once per week How often do you get together with friends or relatives?: three or more times per week How often do you attend anabaptist or caodaism services?: 1-3 times per year Do you belong to any clubs or organized social groups?: no Panel score (0-1 are the most socially isolated patients): 2 What type of physical activity do you participate in: aerobic, weight lifting and running Duration: 45-60 minutes/day Frequency: 5-6 times per week Mamta/Sikhism: Nondenominational Special mamta needs: No Agree to transfusion: Yes Seatbelt use: always Helmet use: Yes Helmet use: always Drive intox or ride w/intox cdl b driver: No Working smoke detector in home: Yes Carbon monox detector in home: Yes Firearms in home: Yes Firearms unloaded and locked: Yes Do you feel safe at home: Yes Do you feel safe in your relationship?: Yes Victim of physical abuse: No Victim of emotional abuse: No Victim of sexual abuse: No
--- NOTE | 2024-11-08 12:30 | RT.EKG_ITS ---
APPROVED REPORT Exam: Resting ECG Reason for Exam: baseline/screening Patient Location: E HR:87 bpm ECG Measurements Heart Rate [address] 158 P 66 QRSd 104 QRS 84 QT 337 T 50 QTc 406 Conclusion Sinus rhythm 87 normal axis no stemi
[2024-11-08 13:38] LABS: COVID-19 PCR Negative (Negative); Influenza A PCR Positive (Negative); Influenza B PCR Negative (Negative); RSV PCR Negative (Negative)
[2024-11-08 13:41] LABS: Abs Immature Grans 0.03 10^3/uL (0.0-0.06); Absolute Basophil Count 0.04 10^3/uL (0.0-0.2); Absolute Eosinophil Count 0.11 10^3/uL (0.0-0.7); Absolute Monocyte Count 0.58 10^3/uL (0.1-0.8); Absolute Neutrophil Count 6.55 10^3/uL (1.2-6.7); Basophils % 0.5 %; Eosinophils % 1.4 %; HCT 48.4 % (40.0-50.0); HGB 16.4 g/dL (13.5-17.5); Immature Grans % 0.4 %; Lymphocytes % 7.6 %; MCH 28.7 pg (27.0-33.0); MCHC 33.9 % (32.0-36.0); MCV 85 fL (80-95); MPV 9.8 fL (8.0-11.0); Monocytes % 7.3 %; Neutrophils % 82.8 %; Platelet Count 221 10^3/uL (130-400); RBC 5.71 10^6/uL (4.36-5.78); RDW 12.4 % (11.8-14.1); RDW-SD 38.1 fL; WBC 7.91 10^3/uL (4.4-10.8)
[2024-11-08 13:51] LABS: Source Nasopharynx
[2024-11-08 13:59] LABS: ALT 28 U/L (16-63); AST 16 U/L (15-37); Albumin 4.9 g/dL (3.4-5.0); Alkaline Phosphatase 103 U/L (46-116); Anion Gap 3.2 mmol/L (3-11); BUN 9 mg/dL (7-18); Bilirubin, Total 0.72 mg/dL (0.2-1.0); CO2 33.8 mmol/L (21.0-32.0); Calcium 9.7 mg/dL (8.5-10.1); Chloride 106 mmol/L (98-107); Estimated GFR 105.79 (mL/min/1.73m2); Glucose 94 mg/dL (74-106); Lipase 32 U/L (<78); Potassium 4.3 mmol/L (3.5-5.1); Sodium 143 mmol/L (136-145); Total Protein 8.1 g/dL (6.4-8.2)
[2024-11-08 14:07] LABS: D-Dimer 214 ng/mlFEU (<500)
== END 2024-11-08 14:40 | disposition home or self-care (01) ==
PROVIDERS: Emergency Provider Physician Assistant; PCP Nurse Practitioner Family
DX: J09.X2 Influenza due to identified novel influenza A virus with other respiratory manifestations (principal); R05.1 Acute cough; M54.50 Low back pain, unspecified; R50.9 Fever, unspecified; F17.290 Nicotine dependence, other tobacco product, uncomplicated; M54.2 Cervicalgia
CPT/HCPCS: 80053; 83690; 87637; 93005; 99284; 85025; 85379; 93010

== ENCOUNTER 2025-02-04 17:30 | Emergency (ER) | payer BC, SELFPAY ==
[2025-02-04 17:33] VITALS: BP 136/74; PULSE 65; RESP 16; TEMP 36.6; O2SAT 98
[2025-02-04 17:35] VITALS: BP 136/74; PULSE 65; RESP 16; TEMP 36.6; O2SAT 98
--- NOTE | 2025-02-04 17:47 | ED.GENADUL_ITS ---
Discharge Plan Disposition Patient Disposition: Home Condition: Stable Discharge Details Clinical Impression: Bilateral otitis externa Primary Care Provider: Patrick Castro ED Provider: Aliya Bill Home Meds and New Rx's Prescriptions: New ofloxacin 0.3 % drops 10 drp otic (ear) DAILY 7 Days Qty: 5 0RF No Action methylphenidate HCl 10 mg capsule, ER biphasic 30-70 10 mg PO DAILY MDD 10mg Qty: 28 0RF Discharge Instructions Instructions: Outer Ear Infection ED Additional Instructions: You were seen in the emergency department today for evaluation of ear pain and muffled hearing and had evidence of a mild outer ear infection, known as otitis externa. Behind your eardrums looked safe and healthy, though there is likely some contribution from your seasonal allergies to the symptoms you are experiencing today. I recommend continuing your oral antiallergy medication, this can be [id number] Claritin or Zyrtec once per day. Additionally, I have provided you with a prescription for ofloxacin eardrops. Put 5 to 10 drops in both of your ears twice per day for the next week. Please follow-up with your primary care provider in the next few days to discuss this visit and any symptoms that change, worsen, or persist. Thank you for allowing us to be part of your care. HPI General Mode of arrival: ambulatory . Date/Time Provider Initiated Documentation: 02/04/25 17:31 . Limitations to Documentation: no limitations . Information obtained by: patient and old records reviewed . HPI Narrative: HISTORY OF PRESENT ILLNESS The patient presents for evaluation of ear pressure. He has been experiencing severe bilateral ear pressure for the past few weeks, which has progressively worsened and is now impacting his auditory perception. He reports needing to increase the volume of the television and frequently asking others to repeat themselves. Initially, he attributed this to allergies, expecting it to resolve spontaneously, but the symptoms have persisted. He also reports a persistent cough, particularly at night, which has remained unchanged since his influenza infection in 10/2024. He reports no recent trauma to the ears but mentions participation in a don water class involving frequent submersion in water approximately 2 weeks ago. He reports no family history of early hearing loss. He reports no discharge. The pressure does not seem to be influenced by swallowing or blowing his nose. His appetite and hydration status are normal, and he reports no fevers. He has not started any new medications apart from Claritin. He has used Q-tips for ear cleaning. He recalls a single episode of blurred vision in one eye, which he believes was allergy-related. His suspected conjunctivitis due to the redness and swelling of the eye, but he disagrees as the entire eye was red and painful when focusing on close objects. These symptoms have been intermittent, but the blurred vision has not recurred. Related Data Home Medications ?Medication ?Instructions ?Recorded ?Confirmed methylphenidate HCl 10 mg biphasic 10 mg PO DAILY #28 caps 09/08/23 02/04/25 30-70 capsule,extended release ofloxacin 0.3 % ear drops 10 drp otic (ear) DAILY 7 days #5 02/04/25 mL Previous Rx's ?Medication ?Instructions ?Recorded methylphenidate HCl 10 mg biphasic 10 mg PO DAILY #28 caps 09/08/23 30-70 capsule,extended release ofloxacin 0.3 % ear drops 10 drp otic (ear) DAILY 7 days #5 02/04/25 mL Allergies Allergy/AdvReac Type Severity Reaction Status Date / Time oats Allergy Severe Anaphylaxsi Unverified 02/04/25 17:34 s amoxicillin Allergy Mild Hives Unverified 02/04/25 17:34 chocolate flavor Allergy Mild Skin Rash Unverified 02/04/25 17:34 stawberrys Allergy Mild Skin Rash Uncoded 02/04/25 17:34 General Stated Complaint: EarProblem GARDENIA: 4 Exam Narrative Exam Narrative: Gen: Awake and alert, in no apparent distress HEENT: Non-icteric sclera, conjunctival injection of the right lateral inferior quadrant of the right eye, pupils equal and reactive bilaterally, EOMs are full and without nystagmus. The bilateral ear canals have very mild erythema, no exudate or significant swelling, TMs fully visualized did not show no effusion, purulence or bulging. No tympanic membranes rupture Neck: Supple Lungs: No apparent respiratory distress, normal respiratory effort. CV: Appears well perfused, heart with regular rate and rhythm, strong distal pulses Abdomen: Non-distended MSK: Moves 4 extremities without apparent limitation in ROM Skin: Visualized skin without rashes, cyanosis. Neuro: Normal Gait, no obvious focal deficits or facial asymmetry. Speaks in full, clear sentences. Psych: Appropriate for situation. Course Vital Signs Vital signs: Vital Signs Temperature 36.6 C 02/04/25 17:33 Pulse 65 02/04/25 17:33 Respiratory Rate 16 02/04/25 17:33 Blood Pressure 136/74 02/04/25 17:33 Pulse Oximetry 98 02/04/25 17:33 Temperature 36.6 C 02/04/25 17:35 Pulse 65 02/04/25 17:35 Respiratory Rate 16 02/04/25 17:35 Blood Pressure 136/74 02/04/25 17:35 Pulse Oximetry 98 02/04/25 17:35 Medical Decision Making This is a 29-year-old male patient presenting for evaluation of bilateral ear pain and pressure with decreased hearing sensitivity. Differential includes but is not limited to otitis externa, no evidence on physical examination for otitis media or tympanic membrane rupture. The patient has preserved symmetrical hearing at this time. I considered allergic rhinitis/eustachian tube dysfunction. My concern for sensorineural hearing loss is quite low. Given the exposure to water submersion, the irritation in the external ear canals bilaterally, I am most concerned for otitis externa and it is reasonable to start this patient on a course of ofloxacin, oral antihistamines for his allergies. At this time, the patient has had a full medical evaluation and is safe for discharge to home. They are hemodynamically stable, ambulatory, and tolerating PO. They are understanding of the follow-up plan and return precautions. They left our facility without incident. Final Assessment: Bilateral ear pressure and hearing impairment likely due to otitis externa and potential allergic rhinitis. Treatment includes eardrops and antihistamines. Clinical Impression: - Otitis externa - Allergic rhinitis Disposition: - Discharge - Follow-Up: Recommended follow-up with primary care physician to ensure symptom improvement and manage allergies effectively. Aliya Bill MD Patient consented to the use of STEVEN for this patient encounter. Medical Records Medical records reviewed: Yes I reviewed the patient's medical records. Lab Data Lab results reviewed: Yes I reviewed the patient's lab results. Quality:SDOH Health Related Social Needs: No Data to Display PFSH All Active Problems (Updated 02/04/25 @ 17:48 by Aliya Bill MD) Bilateral otitis externa (Acute) No-show for appointment (Acute) Cubital tunnel syndrome on right (Acute) Depression with anxiety (Acute) Attention deficit hyperactivity disorder (ADHD) (Acute) Tobacco chew use (Acute) slowly stopping Asthma (Chronic) Most likely grown out of this. Surgical History No significant past surgical history Family History Mother Depression Father Diabetes Brother No problems noted. Brother No problems noted. Social History Smoking/Tobacco Use Status: Former Tobacco Use tobacco type: smokeless tobacco Quit Date: 06/27/23 Tobacco: How many years used: 5 Smokeless tobacco user: chewing tobacco Quit status: quit date established Second Hand Exposure: Yes Smoking risk assessment performed?: Yes Alcohol Intake: never Drug use: Never Substance use type: does not use Adopted: No Caregiver/Support person: No Foster care: No Household members: spouse and children Housing: house Number of Children: 1 Communication Needs: None Education Level: college Do you need help understanding health information?: Never current occupation: [employer] Pets and animals: Yes Pets and animals: cat(s) Sexually active: Yes Do you think of yourself as: straight/heterosexual Current gender identity: male What is your relationship status?: How often do you talk on the phone with friends or family?: once per week How often do you get together with friends or relatives?: three or more times per week How often do you attend congregational or latter-day services?: 1-3 times per year Do you belong to any clubs or organized social groups?: no Panel score (0-1 are the most socially isolated patients): 2 What type of physical activity do you participate in: aerobic, weight lifting and running Duration: 45-60 minutes/day Frequency: 5-6 times per week Mamta/Spiritism: [employer] Special mamta needs: No Agree to transfusion: Yes Seatbelt use: always Helmet use: Yes Helmet use: always Drive intox or ride w/intox miniature train driver: No Working smoke detector in home: Yes Carbon monox detector in home: Yes Firearms in home: Yes Firearms unloaded and locked: Yes Do you feel safe at home: Yes Do you feel safe in your relationship?: Yes Victim of physical abuse: No Victim of emotional abuse: No Victim of sexual abuse: No
[2025-02-04] MEDS: Ofloxacin 0.3% OTIC 5 ML BTL AU (18:11)
== END 2025-02-04 18:15 | disposition home or self-care (01) ==
LOC: ER 18:15
PROVIDERS: Emergency Provider Emergency Medicine; PCP Nurse Practitioner Family
DX: H60.93 Unspecified otitis externa, bilateral (principal)
CPT/HCPCS: 99283 ×2

== ENCOUNTER 2025-02-06 23:26 | Emergency (ER) | payer BC, SELFPAY ==
--- NOTE | 2025-02-06 23:28 | W.ED.GENAD ---
Discharge Plan Disposition Patient Disposition: Home Discharge Details Clinical Impression: Rupture of left tympanic membrane due to otitis media, Bilateral otitis externa Primary Care Provider: Patrick Castro ED Provider: Arian De [place] Meds and New Rx's Prescriptions: New cefpodoxime 200 mg tablet 200 mg PO BID Qty: 14 0RF Rx Instructions: must administer with a meal/food Continued methylphenidate HCl 10 mg capsule, ER biphasic 30-70 10 mg PO DAILY MDD 10mg Qty: 28 0RF ofloxacin 0.3 % drops 10 drp otic (ear) DAILY 7 Days Qty: 5 0RF Discharge Instructions Instructions: Ruptured Eardrum ED Additional Instructions: You were seen for increased ear pain and blood draining from the left ear which appears to be related to a ruptured tympanic membrane likely from infection. You should continue the eardrops previously prescribed and they are safe for use in both ears still. Do not allow water to get in either ear but especially the left ear. We will start you on an oral antibiotic and have you follow-up with ear nose and throat, call for appointment. Return to ED for any fever, worsening headache, neurologic change, worsening ear pain, other concerns. Referrals: Narendra Swanson MD [ [facility] STAFF PHYSICIAN] - [facility] General Mode of arrival: ambulatory. Date/Time Provider Initiated Documentation: 02/06/25 23:28. Limitations to Documentation: no limitations. Information obtained by: patient, RN notes reviewed and old records reviewed. HPI Narrative: Patient presents to ED with decreased hearing in the left ear as well as blood draining from the ear itself. Patient seen here 2 days ago and diagnosed with otitis externa. He was started on ofloxacin eardrops. At that time documented that both TMs were intact. Patient reports that he has been using the drops. Left ear has become more painful and tonight had a sharp pain immediately prior to draining of some blood. He now has decreased hearing on that side. He is otherwise not been ill. He has no fever, headache, cough. Related Data Home Medications ?Medication ?Instructions ?Recorded ?Confirmed methylphenidate HCl 10 mg biphasic 10 mg PO DAILY #28 caps 09/08/23 02/06/25 30-70 capsule,extended release ofloxacin 0.3 % ear drops 10 drp otic (ear) DAILY 7 days #5 02/04/25 02/06/25 mL cefpodoxime 200 mg tablet 200 mg PO BID #14 tabs 02/06/25 Previous Rx's ?Medication ?Instructions ?Recorded methylphenidate HCl 10 mg biphasic 10 mg PO DAILY #28 caps 09/08/23 30-70 capsule,extended release ofloxacin 0.3 % ear drops 10 drp otic (ear) DAILY 7 days #5 02/04/25 mL cefpodoxime 200 mg tablet 200 mg PO BID #14 tabs 02/06/25 Allergies Allergy/AdvReac Type Severity Reaction Status Date / Time oats Allergy Severe Anaphylaxsi Unverified 02/06/25 23:32 s amoxicillin Allergy Mild Hives Unverified 02/06/25 23:32 chocolate flavor Allergy Mild Skin Rash Unverified 02/06/25 23:32 stawberrys Allergy Mild Skin Rash Uncoded 02/06/25 23:32 General GARDENIA: 4 Exam Narrative Exam Narrative: Const: WDWN male in NAD. VS per triage. HEENT: NC/AT. Normal facial exam. Right TM remains in tact without erythema, canal with mild continued erythema and debris. Left ear with blood draining from canal. Blood appears to be originating from TM which is obscured secondary to blood. Appears to be intact posterior and superior which is the only part of the TM that I can visualize. There is no purulent drainage. Neck: Supple. Trachea midline. Lungs: Normal respiratory effort. Neuro: A+O x 3. Normal speech, mentation, gait. Cranial nerves II - XII grossly intact. No gross motor or sensory deficit. Medical Decision Making Patient presenting to ED with increased left ear pain, decreased hearing, blood draining from the left canal. Seen here 2 days ago and diagnosed with otitis externa. Still on ofloxacin drops. Now appears to have ruptured left TM not related to any type of trauma. Presume related to otitis media. There is no purulent drainage, just blood but will cover with oral antibiotics at this point and refer to ENT. Patient may continue the ofloxacin drops. Instructed not to allow any water into either ear but especially the left side. Return precautions provided. PFSH All Active Problems Rupture of left tympanic membrane due to otitis media (Acute) Bilateral otitis externa (Acute) Cubital tunnel syndrome on right (Acute) Depression with anxiety (Acute) Tobacco chew use (Acute) slowly stopping Asthma (Chronic) Most likely grown out of this. Medical History Attention deficit hyperactivity disorder (ADHD) Surgical History No significant past surgical history Family History Mother Depression Father Diabetes Brother No problems noted. Brother No problems noted. Social History Smoking/Tobacco Use Status: Former Tobacco Use tobacco type: smokeless tobacco Quit Date: 06/27/23 Tobacco: How many years used: 5 Smokeless tobacco user: chewing tobacco Quit status: quit date established Second Hand Exposure: Yes Smoking risk assessment performed?: Yes Alcohol Intake: never Drug use: Never Substance use type: does not use Adopted: No Caregiver/Support person: No Foster care: No Household members: spouse and children Housing: house Number of Children: 1 Communication Needs: None Education Level: college Do you need help understanding health information?: Never current occupation: [employer] Pets and animals: Yes Pets and animals: cat(s) Sexually active: Yes Do you think of yourself as: straight/heterosexual Current gender identity: male What is your relationship status?: How often do you talk on the phone with friends or family?: once per week How often do you get together with friends or relatives?: three or more times per week How often do you attend zoroastrian or catholic services?: 1-3 times per year Do you belong to any clubs or organized social groups?: no Panel score (0-1 are the most socially isolated patients): 2 What type of physical activity do you participate in: aerobic, weight lifting and running Duration: 45-60 minutes/day Frequency: 5-6 times per week Mamta/Advent: Confucianism Special mamta needs: No Agree to transfusion: Yes Seatbelt use: always Helmet use: Yes Helmet use: always Drive intox or ride w/intox hazmat cdl a driver: No Working smoke detector in home: Yes Carbon monox detector in home: Yes Firearms in home: Yes Firearms unloaded and locked: Yes Do you feel safe at home: Yes Do you feel safe in your relationship?: Yes Victim of physical abuse: No Victim of emotional abuse: No Victim of sexual abuse: No
[2025-02-06 23:29] VITALS: BP 144/76; PULSE 62; RESP 18; TEMP 36; O2SAT 99
[2025-02-06] MEDS: Cefpodoxime 200 MG TAB PO (23:56)
== END 2025-02-07 00:55 | disposition home or self-care (01) ==
PROVIDERS: Emergency Provider Emergency Medicine; PCP Nurse Practitioner Family
DX: H72.92 Unspecified perforation of tympanic membrane, left ear (principal); H67.2 Otitis media in diseases classified elsewhere, left ear; H60.93 Unspecified otitis externa, bilateral
CPT/HCPCS: 99283 ×2